=== PATIENT | male | born 1990 | race American Indian/Alaskan Native ===

== ENCOUNTER 2017-02-03 18:20 | Emergency (ER) | payer SELFPAY ==
--- NOTE | 2017-02-03 21:26 | Emergency Department Report ---
ED Male HPI - General Chief complaint: Urogenital-Male Stated complaint: GENITAL DISCOMFORT/LEAKING Time Seen by Provider: 02/03/17 21:12 Source: patient Mode of arrival: Ambulatory Limitations: No Limitations - History of Present Illness Initial comments: 26-year-old male past medical history none presents with complaint of 3 weeks of developing ulceration to tip of penis. Patient describes lesion as painless but uncomfortable, slightly yellowish discharge. Denies any fevers chills no diffuse rash denies any urethral discharge. States he had unprotected sex with a male partner 3 weeks ago in a night club and subsequently developed this lesion the tip of his penis. MD Complaint: penile discharge Onset/Timin -: week(s) Location: penis Radiation: none Severity: moderate Improves with: none Worsens with: none - Related Data Previous Rx's Medication Instructions Recorded Last Taken Type Diphenoxylate/Atropine [Lomotil] 1 tab PO Q4H PRN #16 tablet 04/18/14 Unknown Rx Doxycycline [Vibramycin CAP] 100 mg PO Q12HR #14 capsule 02/03/17 Unknown Rx Allergies Allergy/AdvReac Type Severity Reaction Status Date / Time No Known Allergies Allergy Verified 02/03/17 22:01 ED Review of Systems ROS: Stated complaint: GENITAL DISCOMFORT/LEAKING Other details as noted in HPI Constitutional: denies: chills, fever Eyes: denies: eye pain, eye discharge, vision change ENT: denies: ear pain, throat pain Respiratory: denies: cough, shortness of breath, wheezing Cardiovascular: denies: chest pain, palpitations Endocrine: no symptoms reported Gastrointestinal: denies: abdominal pain, nausea, diarrhea Genitourinary: denies: urgency, dysuria Musculoskeletal: denies: back pain, joint swelling, arthralgia Skin: denies: rash, lesions Neurological: denies: headache, weakness, paresthesias Psychiatric: denies: anxiety, depression Hematological/Lymphatic: denies: easy bleeding, easy bruising ED Past Medical Hx - Past Medical History Previous Medical History?: No - Surgical History Past Surgical History?: No - Social History Smoking Status: Current Every Day Smoker Substance Use Type: None - Medications Home Medications: Home Medications Medication Instructions Recorded Confirmed Last Taken Type Diphenoxylate/Atropine [Lomotil] 1 tab PO Q4H PRN #16 tablet 04/18/14 Unknown Rx Doxycycline [Vibramycin CAP] 100 mg PO Q12HR #14 capsule 02/03/17 Unknown Rx ED Physical Exam - General Limitations: No Limitations General appearance: alert, in no apparent distress - Head Head exam: Present: atraumatic, normocephalic - Eye Eye exam: Present: normal appearance, PERRL, EOMI - ENT ENT exam: Present: mucous membranes moist - Neck Neck exam: Present: normal inspection - Respiratory Respiratory exam: Present: normal lung sounds bilaterally. Absent: respiratory distress - Cardiovascular Cardiovascular Exam: Present: regular rate, normal rhythm. Absent: systolic murmur, diastolic murmur, rubs, gallop - GI/Abdominal GI/Abdominal exam: Present: soft, normal bowel sounds - Rectal Rectal exam: Present: deferred - External exam: Present: lesions (visible chancre to glans) - Extremities Exam Extremities exam: Present: normal inspection - Back Exam Back exam: Present: normal inspection - Neurological Exam Neurological exam: Present: alert, oriented X3 - Psychiatric Psychiatric exam: Present: normal affect, normal mood - Skin Skin exam: Present: warm, dry, intact, normal color. Absent: rash ED Course Vital Signs 02/03/17 19:05 Temperature 99.1 F Pulse Rate 106 H Respiratory 20 Rate Blood Pressure 118/78 O2 Sat by Pulse 100 Oximetry ED Medical Decision Making - Medical Decision Making A/P: Penile chancre, early stage syphilis 1-based on clinical appearance and penile chancre clinical concern for syphilis lesion will send RPR and then treat empirically with penicillin G 2.4 million units. As per lab RPRs only processed in the AM, will send and treat anyway 2-will treat pt empirically for urethritis as well with azithro and doxycycline 3- I explained to pt that he should engage in safe sex practices, f/u with PMD 4- case d/w Dr. Barber before DC. Critical care attestation.: If time is entered above; I have spent that time in minutes in the direct care of this critically ill patient, excluding procedure time. ED Disposition Clinical Impression: Syphilitic chancre of penis, Penile lesion Disposition: DISCHARGED TO HOME OR SELFCARE Is pt being admited?: No Does the pt Need Aspirin: No Condition: Stable Instructions: Syphilis (ED), Nonspecific Urethritis in Men (ED) Prescriptions: Doxycycline [Vibramycin CAP] 100 mg PO Q12HR #14 capsule Referrals: CLAU LOFTON MD [Staff Physician] - 3-5 Days Forms: Work/School Release Form(ED)
[2017-02-03] MEDS ORDERED: BICILLIN L-A IM ONE ×2 (21:45→22:14)
[2017-02-03 21:56] LABS: Bilirubin,Urine NEG (Negative); Blood,Urine SM (Negative); Ketones,Urine TR mg/dL (Negative); Leukocyte Esterase,Urine TR (Negative); Mucus,Urine FEW /HPF; Nitrite,Urine NEG (Negative)
[2017-02-03] MEDS ORDERED: ZITHROMAX PO ONE (21:57)
[2017-02-03 22:41] VITALS: BP 119/68
[2017-02-04 12:30] LABS: Rapid Plasma Reagin Reactive (Nonreactive)
== END 2017-02-03 22:59 | disposition home or self-care (01) ==
LOC: ED 18:20
DX: A51.0 Primary genital syphilis (principal); N50.9 Disorder of male genital organs, unspecified; F17.200 Nicotine dependence, unspecified, uncomplicated
CPT/HCPCS: 36415; 81001; 86592; 86593; 87591; 96372; 99283; J0561